=== PATIENT | female | born 1980 | race Caucasian/White ===

== ENCOUNTER 2024-06-04 04:41 | Emergency (ER) | payer MEDICAID, OTHER ==
[~2024-06-04] VITALS: Ht 170.2 cm; Wt 78.8 kg
[2024-06-04 04:43] VITALS: BP 156/59; PULSE 85; RESP 14; TEMP 97.9; O2SAT 99
== END 2024-06-04 06:08 ==
LOC: EEVIPCON 04:41 → ER 04:41
DX: S61.031A Puncture wound without foreign body of right thumb without damage to nail, initial encounter (principal); Z88.2 Allergy status to sulfonamides; W46.0XXA Contact with hypodermic needle, initial encounter; Y93.89 Activity, other specified; Y92.89 Other specified places as the place of occurrence of the external cause; Y99.8 Other external cause status
CPT/HCPCS: 99281

== ENCOUNTER 2024-09-28 08:29 | Outpatient (CLI) | payer BC ==
[2024-09-28 08:52] LABS: BASOPHILS # (AUTO) 0.1 X10'3 (0-0.2); EOSINOPHILS # (AUTO) 0.3 X10'3 (0-0.9); HEMATOCRIT 29.5 % (35.0-45.0); HEMOGLOBIN 9.2 g/dl (12.0-16.0); LYMPHOCYTES # (AUTO) 1.8 X10'3 (1.1-4.8); LYMPHOCYTES % (AUTO) 27.7 % (21-51); MEAN CORPUSCULAR HEMOGLOBIN 21.6 PG (27.0-31.0); MEAN CORPUSCULAR HGB CONC 31.3 g/dL (33.0-36.5); MEAN CORPUSCULAR VOLUME 68.8 FL (78-98); MEAN PLATELET VOLUME 8.3 FL (7.4-10.4); MONOCYTES # (AUTO) 0.5 X10'3 (0-0.9); MONOCYTES % (AUTO) 7.6 % (2-12); NEUTROPHILS # (AUTO) 3.8 X10'3 (1.8-7.7); NEUTROPHILS % (AUTO) 59.7 % (42-75); PLATELET COUNT 253 X10'3 (140-440); RED BLOOD COUNT 4.29 X10'6 (4.20-5.60); RED CELL DISTRIBUTION WIDTH 16.5 % (11.5-14.5); WHITE BLOOD COUNT 6.4 X10'3 (4.5-11.0)
[2024-09-28 09:47] LABS: ALANINE AMINOTRANSFERASE 41 U/L (12-78); ALBUMIN 3.7 G/DL (3.4-5.0); ALBUMIN/GLOBULIN RATIO 1.1 (1.1-1.5); ALKALINE PHOSPHATASE 69 IU/L (46-116); ANION GAP 6 (8-16); ASPARTATE AMINO TRANSFERASE 20 U/L (10-37); BILIRUBIN,TOTAL 0.3 MG/DL (0.1-1.0); BLOOD UREA NITROGEN 11 MG/DL (7-18); BUN/CREATININE RATIO 16.4 (10.0-20.0); CALCIUM 8.6 MG/DL (8.5-10.1); CHLORIDE 104 MMOL/L (99-107); CHOL/HDL RATIO 4.1 (0.00-4.99); CHOLESTEROL 185 MG/DL (0-200); CREATININE 0.67 MG/DL (0.40-0.90); GLUCOSE 96 MG/DL (70-104); HDL CHOLESTEROL 45 MG/DL (35-60); LDL CHOLESTEROL 98 MG/DL (50-100); POTASSIUM 3.9 MMOL/L (3.5-5.1); SODIUM 140 MMOL/L (135-145); THYROID STIMULATING HORMONE 3.19 ulU/ml (0.34-4.50); TOTAL CARBON DIOXIDE 29.6 MMOL/L (24-32); TOTAL PROTEIN 7.2 G/DL (6.4-8.2); TRIGLYCERIDES 307 MG/DL (20-135); eGFR > 90 ML/MIN
[2024-09-28 10:18] LABS: ANISOCYTOSIS 1+; MICROCYTOSIS 2+; PLATELET ESTIMATE NORMAL
[2024-09-28 10:19] LABS: HYPOCHROMASIA 1+
== END 2024-09-28 23:59 | disposition home or self-care (01) ==
LOC: LAB 08:29
PROVIDERS: ATTEND Nurse Practitioner
DX: D50.9 Iron deficiency anemia, unspecified (principal); E78.5 Hyperlipidemia, unspecified; T50.905A Adverse effect of unspecified drugs, medicaments and biological substances, initial encounter; X58.XXXA Exposure to other specified factors, initial encounter; Y93.89 Activity, other specified; Y92.89 Other specified places as the place of occurrence of the external cause; Y99.8 Other external cause status
CPT/HCPCS: 36415; 80053; 80061; 84443; 85008; 85025

== ENCOUNTER 2025-01-16 04:00 | Emergency (ER) | payer BC, OTHER ==
[~2025-01-16] VITALS: Ht 170.2 cm; Wt 79.6 kg
[2025-01-16 04:01] VITALS: BP 166/97; PULSE 78; RESP 16; TEMP 97.8; O2SAT 99
== END 2025-01-16 04:30 | disposition home or self-care (01) ==
LOC: ER 04:00
DX: Z77.21 Contact with and (suspected) exposure to potentially hazardous body fluids (principal); Z53.21 Procedure and treatment not carried out due to patient leaving prior to being seen by health care provider
CPT/HCPCS: 99281